=== PATIENT | female | born 1995 | race African-American/Black ===

== ENCOUNTER 2018-03-23 06:55 | Inpatient (IN) ==
[2018-03-23 07:57] LABS: Basophils % 0.1 % (0.0-0.8); Eosinophils % 0.4 % (0.00-10.9); Hematocrit 28.7 VOL% (35.7-47.0); Hemoglobin 8.9 GM/DL (12.0-16.0); Immature Granulocytes % 0.7 %; Immature Granulocytes Absolute 0.06 #; Lymphocytes % 21.4 % (21.3-54.2); Mean Corpuscular Hemoglobin 27 PG (27-34); Mean Corpuscular Volume 85.4 FL (87-102); Mean Platelet Volume 11.4 FL (9.6-12.0); Monocytes # 0.9 10*3/uL (0.11-0.8); Monocytes % 10.2 % (1.7-12.7); Neutrophils # 6.2 10*3/uL (1.4-7.4); Neutrophils % 67.2 % (38.7-73.9); Platelet Count 163 T/CUMM (130-400); Red Blood Count 3.36 MC/CUMM (3.8-5.5); Red Cell Distribution Width 14.7 % (9.3-17.3); White Blood Count 9.2 T/CUMM (4-12)
[2018-03-23 08:31] LABS: Alanine Aminotransferase 17 U/L (13-56); Albumin 2.7 G/DL (3.4-5.0); Alkaline Phosphatase 87 U/L (45-117); Aspartate Amino Transferase 21 U/L (0-37); Bilirubin,Total < 0.39 MG/DL (0.2-1.0); Blood Urea Nitrogen 4 MG/DL (7-18); Calcium 8.6 MG/DL (8.5-10.1); Glucose 84 MG/DL (74-106); Osmolality,Calculated 272.5 MOS/KG (273-304); Potassium 3.9 MMOL/L (3.5-5.1); Sodium 139 MMOL/L (136-145); Total Protein 6.9 G/DL (6.4-8.3)
[2018-03-23 12:30] LABS: Cord Venous Blood HCO3 22.5 MMOL/L; Cord Venous Blood PCO2 41.9 MMHG; Cord Venous Blood PO2 41.2
[2018-03-24 05:04] LABS: Basophils % 0.2 % (0.0-0.8); Eosinophils # 0.1 10*3/uL (0.0-0.87); Eosinophils % 0.9 % (0.00-10.9); Hematocrit 24.4 VOL% (35.7-47.0); Hemoglobin 7.5 GM/DL (12.0-16.0); Immature Granulocytes % 0.5 %; Immature Granulocytes Absolute 0.05 #; Lymphocytes # 2.7 10*3/uL (1.4-4.0); Lymphocytes % 26.9 % (21.3-54.2); Mean Corpuscular HGB Conc 30.7 GM/DL (32-36); Mean Corpuscular Hemoglobin 27 PG (27-34); Mean Corpuscular Volume 87.1 FL (87-102); Mean Platelet Volume 10.9 FL (9.6-12.0); Monocytes # 1.2 10*3/uL (0.11-0.8); Monocytes % 11.7 % (1.7-12.7); Neutrophils % 59.8 % (38.7-73.9); Platelet Count 141 T/CUMM (130-400); Red Cell Distribution Width 14.7 % (9.3-17.3)
[2018-03-24 17:58] LABS: Basophils % 0.2 % (0.0-0.8); Eosinophils # 0.1 10*3/uL (0.0-0.87); Eosinophils % 0.8 % (0.00-10.9); Hematocrit 30.8 VOL% (35.7-47.0); Immature Granulocytes % 0.5 %; Immature Granulocytes Absolute 0.05 #; Lymphocytes # 2.8 10*3/uL (1.4-4.0); Lymphocytes % 29.2 % (21.3-54.2); Mean Corpuscular HGB Conc 31.2 GM/DL (32-36); Mean Corpuscular Hemoglobin 27 PG (27-34); Mean Corpuscular Volume 86.8 FL (87-102); Mean Platelet Volume 11.1 FL (9.6-12.0); Monocytes % 10.2 % (1.7-12.7); Neutrophils # 5.6 10*3/uL (1.4-7.4); Neutrophils % 59.1 % (38.7-73.9); Platelet Count 161 T/CUMM (130-400); Red Blood Count 3.55 MC/CUMM (3.8-5.5); Red Cell Distribution Width 14.8 % (9.3-17.3); White Blood Count 9.4 T/CUMM (4-12)
[2018-03-24 18:01] LABS: Hemoglobin 9.6 GM/DL (12.0-16.0)
[2018-03-25 07:37] VITALS: BP 127/68
== END 2018-03-25 14:20 | disposition home or self-care (01) | DRG 560 ==
LOC: N.LDOUT 06:55 → N.LD 06:58 → N.OB 15:12
PROVIDERS: ADMIT Obstetrics & Gynecology; ATTEND Obstetrics & Gynecology

== ENCOUNTER 2020-01-27 06:36 | Inpatient (IN) ==
[2020-01-27] MEDS ORDERED: ONDANSETRON 4 MG/2 ML VIAL IV STA (06:51)
[2020-01-27] MEDS ORDERED: HYDROmorphone 2 MG/1 ML VIAL IV STA (06:51)
[2020-01-27] MEDS ORDERED: SODIUM CHLORIDE 0.9% 1,000 ML IV STA (06:51)
[2020-01-27 07:42] LABS: Basophils % 0.1 % (0.0-0.8); Hematocrit 40.7 VOL% (35.7-47.0); Hemoglobin 12.5 GM/DL (12.0-16.0); Immature Granulocytes % 0.4 %; Immature Granulocytes Absolute 0.05 #; Lymphocytes # 1.7 10*3/uL (1.4-4.0); Lymphocytes % 13.6 % (21.3-54.2); Mean Corpuscular HGB Conc 30.7 GM/DL (32-36); Mean Platelet Volume 10.4 FL (9.6-12.0); Monocytes % 11.6 % (1.7-12.7); Neutrophils % 74.3 % (38.7-73.9); Platelet Count 228 T/CUMM (130-400); Red Blood Count 4.52 MC/CUMM (3.8-5.5); Red Cell Distribution Width 13.4 % (9.3-17.3); White Blood Count 12.8 T/CUMM (4-12)
[2020-01-27 08:08] LABS: Apearance,Urine CLOUDY (Clear); Bacteria,Urine Occasional /HPF (Few); Bilirubin,Urine Negative (Negative); Blood, Urine Moderate mg/dL (Negative); Glucose,Urine (UA) Negative (Negative); Ketones,Urine Negative (Negative); Mucus,Urine Occasional /LPF (Occasional); Nitrite,Urine Positive (Negative); Protein,Urine 100 MG/DL; Squamous Epithelial Cell,Urine Occasional /HPF (0-10); Urine Color Yellow (Yellow); Urine Specific Gravity 1.017 (1.001-1.035); WBC,Urine 1340 /HPF (0-6)
[2020-01-27] MEDS ORDERED: cefTRIAXone 1,000 MG in SODIUM CHLORIDE 0.9% 100 ML IV STA (08:16)
[2020-01-27 08:20] LABS: Alanine Aminotransferase 17 U/L (13-56); Albumin 3.6 G/DL (3.4-5.0); Alkaline Phosphatase 53 U/L (45-117); Aspartate Amino Transferase 11 U/L (0-37); Bilirubin,Total < 0.39 MG/DL (0.2-1.0); Blood Urea Nitrogen 5 MG/DL (7-18); Estimated Glom Filtration Rate 105 ML/MIN; Glucose 118 MG/DL (74-106); Osmolality,Calculated 270.8 MOS/KG (273-304); Total Protein 8.4 G/DL (6.4-8.3)
[2020-01-27] MEDS ORDERED: KETOROLAC 30 MG/1 ML VIAL ONE (09:32)
[2020-01-27] MEDS ORDERED: KETOROLAC 30 MG/1 ML VIAL IV STA (09:36)
[2020-01-27] MEDS ORDERED: SODIUM CHLORIDE 0.9% 1,000 ML IV ONE (10:48)
[2020-01-27] MEDS ORDERED: GLUCAGON 1 MG VIAL IM PRN (10:48)
[2020-01-27] MEDS ORDERED: ONDANSETRON 4 MG/2 ML VIAL IV PRN (10:48)
[2020-01-27] MEDS ORDERED: DEXTROSE 50% 25 GM/50 ML VIAL IV PRN (10:48)
[2020-01-27] MEDS ORDERED: DOCUSATE SODIUM 100 MG CAPSULE PO PRN ×2 (10:48→10:52)
[2020-01-27] MEDS ORDERED: NICOTINE 21 MG/24 HR PATCH TRANSDERM PRN ×2 (10:48→10:52)
[2020-01-27] MEDS ORDERED: hydrALAZINE 20 MG/1 ML VIAL IV PRN (10:54)
[2020-01-27] MEDS ORDERED: SODIUM CHLORIDE 0.9% 1,500 ML IV ONE (10:57)
[2020-01-27] MEDS ORDERED: DEXTROSE 5% NACL 0.9% 1,000 ML IV SCH (11:00)
[2020-01-27] MEDS ORDERED: SODIUM CHLORIDE 0.9% 1,000 ML IV SCH (11:00)
[2020-01-27] MEDS: HYDROmorphone 2 MG/1 ML VIAL IV PRN ×4 (11:26→23:19)
[2020-01-27] MEDS ORDERED: POTASSIUM CHLORIDE INJ 10 MEQ in SODIUM CHLORIDE 0.9% 1,000 ML IV SCH (11:30)
[2020-01-27 11:32] LABS: Risk Ratio 4.48; Thyroid Stimulating Hormone 0.37 uIU/ml (0.358-3.74); VLDL CHOLESTEROL 15.2 MG/DL
[2020-01-27] MEDS: LEVOFLOXACIN INJ 500 MG in PREMIX 1 EACH IV SCH (13:05)
[2020-01-27] MEDS: ACETAMINOPHEN 500 MG TABLET PO PRN (14:30)
[2020-01-27] MEDS: PANTOPRAZOLE 40 MG TABLET PO SCH (14:58)
[2020-01-27] MEDS: DEXT 5% NACL 0.9% KCL 20 MEQ 20 MEQ/1,000 ML BAG IV SCH (16:30)
[2020-01-27] MEDS: ENOXAPARIN 40 MG/0.4 ML SYRINGE SUBCUT SCH (20:01)
[2020-01-28] MEDS: DEXT 5% NACL 0.9% KCL 20 MEQ 20 MEQ/1,000 ML BAG IV SCH ×3 (00:21→18:59)
[2020-01-28] MEDS: HYDROmorphone 2 MG/1 ML VIAL IV PRN ×5 (02:22→21:01)
[2020-01-28 06:31] LABS: Calcium 8.2 MG/DL (8.5-10.1)
[2020-01-28 06:33] LABS: Eosinophils % 0.2 % (0.00-10.9); Hematocrit 34.6 VOL% (35.7-47.0); Hemoglobin 11.1 GM/DL (12.0-16.0); Immature Granulocytes % 0.4 %; Immature Granulocytes Absolute 0.04 #; Lymphocytes # 2.1 10*3/uL (1.4-4.0); Lymphocytes % 20.5 % (21.3-54.2); Mean Corpuscular HGB Conc 32.1 GM/DL (32-36); Mean Corpuscular Volume 87.6 FL (87-102); Mean Platelet Volume 11.2 FL (9.6-12.0); Monocytes % 19.4 % (1.7-12.7); Neutrophils % 59.5 % (38.7-73.9); Platelet Count 189 T/CUMM (130-400); Red Blood Count 3.95 MC/CUMM (3.8-5.5); Red Cell Distribution Width 13.2 % (9.3-17.3); White Blood Count 10.4 T/CUMM (4-12)
[2020-01-28 07:34] LABS: Band Neutrophils 2 % (0-10); Lymphocytes 20 % (20-55); Platelet Estimate Normal; Segmented Neutrophils 61 % (50-85); Total Cells Counted 100
[2020-01-28] MEDS: ACETAMINOPHEN 500 MG TABLET PO PRN ×2 (08:52→23:17)
[2020-01-28] MEDS: PANTOPRAZOLE 40 MG TABLET PO SCH (08:52)
[2020-01-28] MEDS: LEVOFLOXACIN INJ 500 MG in PREMIX 1 EACH IV SCH (08:53)
[2020-01-28] MEDS: cefTRIAXone 1,000 MG in SYRINGE 1 EACH IV SCH (08:53)
[2020-01-28] MEDS: POTASSIUM CHLORIDE 20 MEQ TABLET PO PRN ×2 (15:07→17:10)
[2020-01-28] MEDS: ENOXAPARIN 40 MG/0.4 ML SYRINGE SUBCUT SCH (21:02)
[2020-01-29] MEDS: HYDROmorphone 2 MG/1 ML VIAL IV PRN ×2 (00:34→04:33)
[2020-01-29] MEDS: DEXT 5% NACL 0.9% KCL 20 MEQ 20 MEQ/1,000 ML BAG IV SCH ×3 (04:36→22:05)
[2020-01-29 05:01] LABS: Basophils % 0.1 % (0.0-0.8); Eosinophils # 0.1 10*3/uL (0.0-0.87); Eosinophils % 0.8 % (0.00-10.9); Hematocrit 33.1 VOL% (35.7-47.0); Hemoglobin 10.1 GM/DL (12.0-16.0); Immature Granulocytes % 0.3 %; Immature Granulocytes Absolute 0.02 #; Lymphocytes # 2.3 10*3/uL (1.4-4.0); Lymphocytes % 28.8 % (21.3-54.2); Mean Corpuscular HGB Conc 30.5 GM/DL (32-36); Mean Corpuscular Volume 89.9 FL (87-102); Mean Platelet Volume 10.5 FL (9.6-12.0); Monocytes % 15.5 % (1.7-12.7); Neutrophils % 54.5 % (38.7-73.9); Platelet Count 187 T/CUMM (130-400); Red Blood Count 3.68 MC/CUMM (3.8-5.5); Red Cell Distribution Width 13.2 % (9.3-17.3)
[2020-01-29 05:18] LABS: Calcium 8.6 MG/DL (8.5-10.1); Osmolality,Calculated 274.4 MOS/KG (273-304)
[2020-01-29] MEDS ORDERED: KETOROLAC 30 MG/1 ML VIAL IV ONE (08:26)
[2020-01-29] MEDS: PANTOPRAZOLE 40 MG TABLET PO SCH (08:41)
[2020-01-29] MEDS: LEVOFLOXACIN INJ 500 MG in PREMIX 1 EACH IV SCH (08:41)
[2020-01-29] MEDS: cefTRIAXone 1,000 MG in SYRINGE 1 EACH IV SCH (08:45)
[2020-01-29] MEDS: ACETAMINOPHEN 500 MG TABLET PO PRN (08:49)
[2020-01-29] MEDS ORDERED: ERTAPENEM 1,000 MG in SODIUM CHLORIDE 0.9% 100 ML IV SCH (17:00)
[2020-01-29] MEDS: ENOXAPARIN 40 MG/0.4 ML SYRINGE SUBCUT SCH (21:46)
[2020-01-29] MEDS: KETOROLAC 10 MG TABLET PO PRN (22:03)
[2020-01-30 05:39] LABS: Calcium 8.5 MG/DL (8.5-10.1); Osmolality,Calculated 279.1 MOS/KG (273-304)
[2020-01-30] MEDS: DEXT 5% NACL 0.9% KCL 20 MEQ 20 MEQ/1,000 ML BAG IV SCH ×2 (06:01→06:24)
[2020-01-30] MEDS: KETOROLAC 10 MG TABLET PO PRN (06:22)
[2020-01-30 07:06] LABS: Basophils % 0.2 % (0.0-0.8); Eosinophils % 0.6 % (0.00-10.9); Hematocrit 31.8 VOL% (35.7-47.0); Hemoglobin 9.7 GM/DL (12.0-16.0); Immature Granulocytes % 0.3 %; Immature Granulocytes Absolute 0.02 #; Lymphocytes % 30.2 % (21.3-54.2); Mean Corpuscular HGB Conc 30.5 GM/DL (32-36); Mean Corpuscular Volume 89.8 FL (87-102); Mean Platelet Volume 11.3 FL (9.6-12.0); Monocytes % 10.4 % (1.7-12.7); Neutrophils % 58.3 % (38.7-73.9); Platelet Count 214 T/CUMM (130-400); Red Blood Count 3.54 MC/CUMM (3.8-5.5); Red Cell Distribution Width 13.3 % (9.3-17.3); White Blood Count 6.6 T/CUMM (4-12)
[2020-01-30 08:28] VITALS: BP 120/58
[2020-01-30] MEDS: PANTOPRAZOLE 40 MG TABLET PO SCH (09:09)
== END 2020-01-30 11:14 | disposition home or self-care (01) | DRG 463 ==
LOC: N.ED 06:36 → N.EDINP 10:17 → N.TELEN 11:10
PROVIDERS: ADMIT Family Medicine; ATTEND Family Medicine

== ENCOUNTER 2020-12-13 00:07 | Inpatient (IN) ==
[2020-12-13] MEDS ORDERED: CALCIUM GLUCONATE 1,000 MG in SODIUM CHLORIDE 0.9% 100 ML IV PRN (00:40)
[2020-12-13] MEDS ORDERED: MAGNESIUM SULF RIDER 4 GM/100 ML PREMIX IV ONE (00:40)
[2020-12-13 01:01] LABS: Basophils % 0.1 % (0.0-0.8); Eosinophils # 0.1 10*3/uL (0.0-0.87); Eosinophils % 0.4 % (0.00-10.9); Hematocrit 29.5 VOL% (35.7-47.0); Hemoglobin 9.1 GM/DL (12.0-16.0); Immature Granulocytes % 0.7 %; Immature Granulocytes Absolute 0.08 #; Lymphocytes # 2.4 10*3/uL (1.4-4.0); Lymphocytes % 21.6 % (21.3-54.2); Mean Corpuscular HGB Conc 30.8 GM/DL (32-36); Mean Corpuscular Volume 87.3 FL (87-102); Mean Platelet Volume 10.4 FL (9.6-12.0); Monocytes % 10.4 % (1.7-12.7); Neutrophils % 66.8 % (38.7-73.9); Platelet Count 191 T/CUMM (130-400); Red Blood Count 3.38 MC/CUMM (3.8-5.5); Red Cell Distribution Width 14.2 % (9.3-17.3); White Blood Count 11.3 T/CUMM (4-12)
[2020-12-13 01:14] LABS: Alanine Aminotransferase 15 U/L (13-56); Albumin 2.6 G/DL (3.4-5.0); Alkaline Phosphatase 62 U/L (45-117); Aspartate Amino Transferase 16 U/L (0-37); Bilirubin,Total < 0.39 MG/DL (0.2-1.0); Blood Urea Nitrogen 4 MG/DL (7-18); Calcium 8.7 MG/DL (8.5-10.1); Carbon Dioxide 26 MMOL/L (21-32); Estimated Glom Filtration Rate 176 ML/MIN; Glucose 114 MG/DL (74-106); Osmolality,Calculated 274.5 MOS/KG (273-304); Potassium 3.5 MMOL/L (3.5-5.1); Sodium 139 MMOL/L (136-145); Total Protein 6.9 G/DL (6.4-8.2)
[2020-12-13] MEDS: LACTATED RINGERS 1,000 ML IV SCH ×2 (01:25→16:54)
[2020-12-13] MEDS ORDERED: AMPICILLIN INJ 2,000 MG in SODIUM CHLORIDE 0.9% 100 ML IV ONE (01:26)
[2020-12-13] MEDS ORDERED: AMPICILLIN 2,000 MG VIAL ONE (01:28)
[2020-12-13 01:39] LABS: Bilirubin,Urine Negative (Negative); Blood, Urine Negative (Negative); Glucose,Urine (UA) Negative (Negative); Ketones,Urine Negative (Negative); Mucus,Urine Occasional /LPF (Occasional); Nitrite,Urine Negative (Negative); Protein,Urine Negative; RBC,Urine 2 /HPF (0-4); Squamous Epithelial Cell,Urine Occasional /HPF (0-10); Urine Appearance CLOUDY (Clear); Urine Color Yellow (Yellow); Urine Specific Gravity 1.014 (1.001-1.035)
[2020-12-13] MEDS: MAGNESIUM SULF DRIP 40 GM/1,000 ML ML IV SCH ×2 (01:49→19:49)
[2020-12-13] MEDS: BUTORPHANOL 1 MG/ML VIAL IV PRN ×5 (02:11→19:44)
[2020-12-13 02:12] LABS: Barbiturates Screen,Urine Negative (Negative); Benzodiazepines Screen,Urine Negative (Negative); Cannabinoid Screen,Urine Negative (Negative); Opiate Screen,Urine Negative (Negative); Phencyclidine Screen,Urine Negative (Negative)
[2020-12-13] MEDS: BETAMETH SODIUM PHOS/ACETATE 30 MG/5 ML VIAL IM SCH (02:13)
[2020-12-13 02:41] LABS: Hypochromasia 1+; Platelet Estimate Normal
[2020-12-13] MEDS: AMPICILLIN INJ 1,000 MG in SODIUM CHLORIDE 0.9% 100 ML IV SCH ×5 (05:24→21:16)
[2020-12-13] MEDS ORDERED: MAGNESIUM HYDROXIDE SUSP 30 ML UDCUP PO ONE (14:21)
[2020-12-13] MEDS: ZALEPLON 5 MG CAPSULE PO PRN (21:06)
[2020-12-13] MEDS: MAGNESIUM HYDROXIDE SUSP 30 ML UDCUP PO PRN (21:39)
[2020-12-13] MEDS: NICOTINE 14 MG/24 HR PATCH TRANSDERM PRN (21:51)
[2020-12-14 00:29] VITALS: BP 107/56
[2020-12-14] MEDS: BUTORPHANOL 1 MG/ML VIAL IV PRN ×2 (01:28→05:37)
[2020-12-14] MEDS: AMPICILLIN INJ 1,000 MG in SODIUM CHLORIDE 0.9% 100 ML IV SCH ×3 (01:30→14:26)
[2020-12-14] MEDS: BETAMETH SODIUM PHOS/ACETATE 30 MG/5 ML VIAL IM SCH (01:35)
[2020-12-14] MEDS: LACTATED RINGERS 1,000 ML IV SCH (05:08)
[2020-12-14] MEDS ORDERED: ACETAMINOPHEN 500 MG TABLET PO PRN (10:34)
[2020-12-14] MEDS ORDERED: ACETAMINOPHEN 325 MG TABLET PO PRN (13:19)
[2020-12-14] MEDS: MAGNESIUM HYDROXIDE SUSP 30 ML UDCUP PO PRN (16:55)
[2020-12-14] MEDS: NICOTINE 14 MG/24 HR PATCH TRANSDERM PRN (22:48)
[2020-12-14] MEDS: ZALEPLON 5 MG CAPSULE PO PRN (23:00)
[2020-12-15] MEDS ORDERED: ALUMINUM/MAGNES/SIMETH MAX STR 30 ML UDCUP PO PRN (00:29)
[2020-12-15] MEDS: MAGNESIUM HYDROXIDE SUSP 30 ML UDCUP PO PRN (06:00)
== END 2020-12-15 16:43 | disposition home or self-care (01) | DRG 563 ==
LOC: N.LDOUT 00:07 → N.LD 00:12
PROVIDERS: ADMIT Obstetrics & Gynecology; ATTEND Obstetrics & Gynecology

== ENCOUNTER 2021-01-21 20:29 | Inpatient (IN) ==
[2021-01-21] MEDS ORDERED: CITRIC ACID/SODIUM CITRATE 30 ML UDCUP PO ONE (21:05)
[2021-01-21] MEDS ORDERED: ceFAZolin 2,000 MG/50 ML DUPLEX IV ONE ×2 (21:05→21:13)
[2021-01-21] MEDS ORDERED: FAMOTIDINE 20 MG/2 ML VIAL IV ONE ×2 (21:05→21:14)
[2021-01-21] MEDS ORDERED: OXYTOCIN/LR 30 UNIT/1,000 ML BAG IV ONE (21:07)
[2021-01-21] MEDS ORDERED: CITRIC ACID/SODIUM CITRATE 30 ML UDCUP ONE (21:13)
[2021-01-21 21:14] LABS: Bilirubin,Urine Negative (Negative); Blood, Urine Small mg/dL (Negative); Glucose,Urine (UA) Negative (Negative); Ketones,Urine Negative (Negative); Mucus,Urine Few /LPF (Occasional); Nitrite,Urine Negative (Negative); Protein,Urine 30 MG/DL; RBC,Urine 5 /HPF (0-4); Squamous Epithelial Cell,Urine Occasional /HPF (0-10); Urine Appearance CLEAR (Clear); Urine Color Yellow (Yellow); Urine Specific Gravity 1.016 (1.001-1.035)
[2021-01-21] MEDS ORDERED: OXYTOCIN 10 UNIT/ML VIAL ONE (21:14)
[2021-01-21 21:26] LABS: Basophils % 0.1 % (0.0-0.8); Eosinophils % 0.3 % (0.00-10.9); Hematocrit 33.1 VOL% (35.7-47.0); Hemoglobin 9.8 GM/DL (12.0-16.0); Immature Granulocytes % 0.5 %; Immature Granulocytes Absolute 0.05 #; Lymphocytes # 2.2 10*3/uL (1.4-4.0); Lymphocytes % 20.5 % (21.3-54.2); Mean Corpuscular HGB Conc 29.6 GM/DL (32-36); Mean Corpuscular Volume 82.3 FL (87-102); Mean Platelet Volume 10.8 FL (9.6-12.0); Neutrophils % 68.6 % (38.7-73.9); Platelet Count 220 T/CUMM (130-400); Red Blood Count 4.02 MC/CUMM (3.8-5.5); Red Cell Distribution Width 14.9 % (9.3-17.3); White Blood Count 10.5 T/CUMM (4-12)
[2021-01-21] MEDS ORDERED: LACTATED RINGERS 1,000 ML IV SCH ×2 (21:30→23:00)
[2021-01-21 21:46] LABS: Albumin 2.7 G/DL (3.4-5.0); Bilirubin,Total 0.9 MG/DL (0.2-1.0); Calcium 8.8 MG/DL (8.5-10.1); Osmolality,Calculated 268.8 MOS/KG (273-304); Potassium 3.7 MMOL/L (3.5-5.1); Total Protein 7.6 G/DL (6.4-8.2)
[2021-01-21] MEDS ORDERED: MIDAZOLAM 2 MG/2 ML VIAL ONE (22:25)
[2021-01-21 22:49] LABS: Cord Arterial Blood HCO3 22.4 MMOL/L
[2021-01-21] MEDS ORDERED: ACETAMINOPHEN 500 MG TABLET PO PRN (22:49)
[2021-01-21] MEDS ORDERED: SIMETHICONE CHEW 80 MG TABLET PO PRN (22:50)
[2021-01-21] MEDS ORDERED: ACETAMINOPHEN 325 MG TABLET PO PRN (22:50)
[2021-01-21] MEDS ORDERED: RHO(D) IMMUNE GLOBULIN 300 MCG SYRINGE IM ONE (22:50)
[2021-01-21] MEDS ORDERED: MAGNESIUM HYDROXIDE SUSP 30 ML UDCUP PO PRN (22:50)
[2021-01-21] MEDS ORDERED: OXYTOCIN/LR 20 UNIT/1,000 ML BAG IV ONE (22:50)
[2021-01-21 22:52] LABS: Cord Venous Blood HCO3 21.1 MMOL/L; Cord Venous Blood PCO2 37.7 MMHG; Cord Venous Blood PO2 27.5 MMHG
[2021-01-21 22:57] LABS: Bacteria,Urine Occasional /HPF (Few); Bilirubin,Urine Negative (Negative); Blood, Urine Small mg/dL (Negative); Glucose,Urine (UA) Negative (Negative); Hyaline Casts,Urine 8 /LPF (0-3); Ketones,Urine Negative (Negative); Mucus,Urine Occasional /LPF (Occasional); Nitrite,Urine Negative (Negative); Protein,Urine Negative; RBC,Urine 2 /HPF (0-4); Renal Epithelial Cells,Urine Occasional /HPF (<1); Urine Appearance CLEAR (Clear); Urine Color Yellow (Yellow); Urine Specific Gravity 1.017 (1.001-1.035); Urine Urobilinogen < 2.0 EU/DL (0.2-1.0)
[2021-01-21 22:58] LABS: Cord Arterial Blood HCO3 21.9 MMOL/L
[2021-01-21 23:00] LABS: Cord Venous Blood HCO3 21.5 MMOL/L; Cord Venous Blood PCO2 38.5 MMHG; Cord Venous Blood PO2 28.5 MMHG
[2021-01-22] MEDS: KETOROLAC 30 MG/1 ML VIAL IV SCH ×3 (01:13→18:51)
[2021-01-22] MEDS: diphenhydrAMINE CAP 25 MG CAPSULE PO PRN (05:57)
[2021-01-22 07:00] LABS: Basophils % 0.1 % (0.0-0.8); Eosinophils % 0.3 % (0.00-10.9); Hematocrit 24.9 VOL% (35.7-47.0); Immature Granulocytes % 0.5 %; Immature Granulocytes Absolute 0.05 #; Lymphocytes # 2.2 10*3/uL (1.4-4.0); Lymphocytes % 21.6 % (21.3-54.2); Mean Corpuscular HGB Conc 30.5 GM/DL (32-36); Mean Corpuscular Volume 81.4 FL (87-102); Mean Platelet Volume 10.9 FL (9.6-12.0); Monocytes % 12.1 % (1.7-12.7); Neutrophils % 65.4 % (38.7-73.9); Red Cell Distribution Width 14.8 % (9.3-17.3); White Blood Count 10.3 T/CUMM (4-12)
[2021-01-22 07:02] LABS: Hemoglobin 7.6 GM/DL (12.0-16.0); Platelet Count 170 T/CUMM (130-400); Red Blood Count 3.06 MC/CUMM (3.8-5.5)
[2021-01-22 07:08] LABS: Eosinophils 1 % (0-10); Hypochromasia 1+; Lymphocytes 25 % (20-55); Microcytosis 1+; Platelet Estimate Adequate; Segmented Neutrophils 67 % (50-85); Total Cells Counted 100
[2021-01-22] MEDS ORDERED: MEPERIDINE 50 MG/1 ML VIAL IV ONE (09:07)
[2021-01-22] MEDS ORDERED: SODIUM CHLORIDE 0.9% 1,000 ML IV PRN (09:24)
[2021-01-22] MEDS: ONDANSETRON 4 MG/2 ML VIAL IV PRN (09:48)
[2021-01-22] MEDS: DOCUSATE SODIUM 100 MG CAPSULE PO SCH ×2 (09:52→20:49)
[2021-01-22] MEDS: MULTIVITAMIN (PRENATAL) TABLET PO SCH (09:53)
[2021-01-22 13:02] LABS: Basophils % 0.1 % (0.0-0.8); Eosinophils % 0.3 % (0.00-10.9); Hematocrit 24.1 VOL% (35.7-47.0); Hemoglobin 7.4 GM/DL (12.0-16.0); Immature Granulocytes % 0.5 %; Immature Granulocytes Absolute 0.04 #; Lymphocytes # 1.9 10*3/uL (1.4-4.0); Lymphocytes % 21.8 % (21.3-54.2); Mean Corpuscular HGB Conc 30.7 GM/DL (32-36); Mean Corpuscular Volume 81.7 FL (87-102); Mean Platelet Volume 10.5 FL (9.6-12.0); Monocytes % 14.1 % (1.7-12.7); Neutrophils % 63.2 % (38.7-73.9); Platelet Count 156 T/CUMM (130-400); Red Blood Count 2.95 MC/CUMM (3.8-5.5); Red Cell Distribution Width 14.7 % (9.3-17.3); White Blood Count 8.7 T/CUMM (4-12)
[2021-01-22 13:29] LABS: Atypical Lymphocytes Few; Hypochromasia 2+; Lymphocytes 26 % (20-55); Microcytosis 2+; Platelet Estimate Normal; Polychromasia 1+; Segmented Neutrophils 65 % (50-85); Target Cells Few; Total Cells Counted 100
[2021-01-22] MEDS: hydrOXYzine HCL 25 MG TABLET PO SCH (14:51)
[2021-01-22] MEDS: IBUPROFEN 800 MG TABLET PO PRN (16:19)
[2021-01-23] MEDS: diphenhydrAMINE CAP 25 MG CAPSULE PO PRN ×2 (00:54→23:15)
[2021-01-23] MEDS: IBUPROFEN 800 MG TABLET PO PRN ×3 (00:54→19:38)
[2021-01-23] MEDS: DOCUSATE SODIUM 100 MG CAPSULE PO SCH ×2 (09:26→22:15)
[2021-01-23] MEDS: MULTIVITAMIN (PRENATAL) TABLET PO SCH (09:26)
[2021-01-23] MEDS: FERROUS SULFATE 325 MG TABLET PO SCH ×2 (09:26→21:23)
[2021-01-23] MEDS: hydrOXYzine HCL 25 MG TABLET PO SCH (09:26)
[2021-01-23] MEDS ORDERED: oxyCODONE/ACETAMINOPHEN 5-325 MG TABLET ONE (11:58)
[2021-01-23] MEDS: oxyCODONE/ACETAMINOPHEN 5-325 MG TABLET PO PRN ×2 (12:02→19:38)
[2021-01-23] MEDS ORDERED: MEPERIDINE 50 MG/1 ML VIAL IV ONE (12:10)
[2021-01-23] MEDS ORDERED: SODIUM CHLORIDE 0.9% 1,000 ML IV SCH (12:30)
[2021-01-23] MEDS: ONDANSETRON 4 MG/2 ML VIAL IV PRN (12:54)
[2021-01-23 13:20] LABS: Hematocrit 24.2 VOL% (35.7-47.0); Hemoglobin 7.3 GM/DL (12.0-16.0)
[2021-01-23] MEDS ORDERED: METOCLOPRAMIDE 10 MG TABLET PO PRN (16:12)
[2021-01-24] MEDS: oxyCODONE/ACETAMINOPHEN 5-325 MG TABLET PO PRN (02:13)
[2021-01-24] MEDS: IBUPROFEN 800 MG TABLET PO PRN ×2 (02:13→09:35)
[2021-01-24] MEDS: FERROUS SULFATE 325 MG TABLET PO SCH (09:31)
[2021-01-24] MEDS: hydrOXYzine HCL 25 MG TABLET PO SCH (09:31)
[2021-01-24] MEDS: DOCUSATE SODIUM 100 MG CAPSULE PO SCH (09:31)
[2021-01-24] MEDS: MULTIVITAMIN (PRENATAL) TABLET PO SCH (09:31)
[2021-01-24 12:02] VITALS: BP 127/74
[2021-01-24 12:45] LABS: Hematocrit 24.7 VOL% (35.7-47.0); Hemoglobin 7.5 GM/DL (12.0-16.0)
[2021-01-24] MEDS ORDERED: KETOROLAC 30 MG/1 ML VIAL IV PRN (13:05)
[2021-01-24] MEDS ORDERED: BUTALBITAL/ACETAMIN/CAFFEINE 50-325-40 MG TABLET PO PRN (13:06)
== END 2021-01-24 16:00 | disposition home or self-care (01) | DRG 540 ==
LOC: N.LDOUT 20:29 → N.LD 20:31 → N.OB 01-22 01:30
PROVIDERS: ADMIT Obstetrics & Gynecology; ATTEND Obstetrics & Gynecology
PROC: LDCSECT (ICD-10-PCS; 2021-01-21 21:45)